=== PATIENT | male | born 1970 | race African-American/Black ===

== ENCOUNTER 2022-05-28 09:51 | Observation (INO) ==
[2022-05-28] MEDS ORDERED: ONDANSETRON 4 MG/2 ML VIAL IV STA (10:40)
[2022-05-28] MEDS ORDERED: LABETALOL 100 MG/20 ML VIAL IV STA (10:40)
[2022-05-28] MEDS ORDERED: SODIUM CHLORIDE 0.9% 500 ML IV STA (10:40)
[2022-05-28 10:50] LABS: Mucus,Urine Occasional /LPF (Occasional); RBC,Urine 5 /HPF (0-4); Squamous Epithelial Cell,Urine Occasional /HPF (0-10)
[2022-05-28 10:52] LABS: Bilirubin,Urine Negative (Negative); Blood, Urine Moderate mg/dL (Negative); Glucose,Urine (UA) 100 mg/dL (Negative); Ketones,Urine Trace mg/dL (Negative); Nitrite,Urine Negative (Negative); Protein,Urine 100 mg/dL (Negative); Urine Appearance Clear (Clear); Urine Color Yellow (Yellow); Urine Specific Gravity 1.025 (1.001-1.035); Urine Urobilinogen 0.2 eU/dL (<2.0)
[2022-05-28 10:57] LABS: Barbiturates Screen,Urine Negative (Negative); Benzodiazepines Screen,Urine Negative (Negative); Cannabinoid Screen,Urine Negative (Negative); Opiate Screen,Urine Negative (Negative); Phencyclidine Screen,Urine Negative (Negative)
[2022-05-28 10:59] LABS: Basophils % 0.5 % (0.0-0.8); Eosinophils % 0.2 % (0.00-10.9); Hematocrit 48.6 VOL% (42.0-52.0); Hemoglobin 15.8 GM/DL (14.0-18.0); Immature Granulocytes % 0.2 %; Immature Granulocytes Absolute 0.01 #; Lymphocytes # 1.1 10*3/uL (1.4-4.0); Lymphocytes % 24.1 % (21.2-54.2); Mean Corpuscular HGB Conc 32.5 GM/DL (32-36); Mean Corpuscular Volume 89.2 FL (87-102); Mean Platelet Volume 9.7 FL (9.6-12.0); Monocytes # 0.4 10*3/uL (0.11-0.8); Monocytes % 9.6 % (1.7-12.7); Neutrophils % 65.4 % (38.7-73.9); Platelet Count 247 T/CUMM (130-400); Red Blood Count 5.45 MC/CUMM (3.8-5.5); Red Cell Distribution Width 14.3 % (9.3-17.3); White Blood Count 4.4 T/CUMM (4-12)
[2022-05-28 11:09] LABS: Albumin 4.2 G/DL (3.4-5.0); Bilirubin,Total 0.8 MG/DL (0.20-1.00); Calcium 9.9 MG/DL (8.5-10.1); Osmolality,Calculated 274.7 MOS/KG (273-304); Total Protein 8.3 G/DL (6.4-8.2)
[2022-05-28] MEDS ORDERED: hydrALAZINE 20 MG/1 ML VIAL IV STA (12:51)
[2022-05-28] MEDS ORDERED: GLUCAGON 1 MG VIAL IM PRN (12:51)
[2022-05-28] MEDS ORDERED: DOCUSATE SODIUM 100 MG CAPSULE PO PRN (12:51)
[2022-05-28] MEDS ORDERED: LACTULOSE 20 GM/30 ML UDCUP PO PRN (12:51)
[2022-05-28] MEDS ORDERED: ALUMINUM/MAGNES/SIMETH MAX STR 30 ML UDCUP PO PRN (12:51)
[2022-05-28] MEDS ORDERED: ACETAMINOPHEN 325 MG TABLET PO PRN (12:51)
[2022-05-28] MEDS ORDERED: DEXTROSE 10% 250 ML BAG IV PRN (12:51)
[2022-05-28] MEDS ORDERED: hydrALAZINE 20 MG/1 ML VIAL IV PRN ×2 (12:51→20:59)
[2022-05-28] MEDS ORDERED: SIMETHICONE CHEW 125 MG TABLET PO PRN (12:51)
[2022-05-28] MEDS ORDERED: ONDANSETRON 4 MG/2 ML VIAL IV PRN (12:51)
[2022-05-28] MEDS ORDERED: cloNIDine 0.3 MG/24 HR PATCH TRANSDERM SCH (13:00)
[2022-05-28] MEDS ORDERED: MAGNESIUM SULF RIDER 4 GM/100 ML PREMIX IV PRN (13:21)
[2022-05-28] MEDS ORDERED: MAGNESIUM SULF RIDER 2 GM/50 ML PREMIX IV PRN (13:21)
[2022-05-28] MEDS ORDERED: chlordiazePOXIDE 10 MG CAPSULE PO PRN (15:21)
[2022-05-28] MEDS: hydroCHLOROthiazide 25 MG TABLET PO SCH (16:26)
[2022-05-28] MEDS: ENOXAPARIN 40 MG/0.4 ML SYRINGE SUBCUT SCH (16:26)
[2022-05-28] MEDS: VALSARTAN 160 MG TABLET PO SCH (16:26)
[2022-05-28] MEDS ORDERED: LABETALOL 20 MG/4 ML SYRINGE IV PRN (20:55)
[2022-05-28] MEDS ORDERED: DOXAZOSIN 1 MG TABLET PO SCH (21:30)
[2022-05-29 06:01] LABS: Basophils % 0.2 % (0.0-0.8); Hematocrit 49.6 VOL% (42.0-52.0); Hemoglobin 15.9 GM/DL (14.0-18.0); Immature Granulocytes % 0.2 %; Immature Granulocytes Absolute 0.01 #; Lymphocytes # 0.8 10*3/uL (1.4-4.0); Lymphocytes % 17.5 % (21.2-54.2); Mean Corpuscular HGB Conc 32.1 GM/DL (32-36); Mean Corpuscular Volume 89.9 FL (87-102); Mean Platelet Volume 10.1 FL (9.6-12.0); Monocytes # 0.4 10*3/uL (0.11-0.8); Monocytes % 9.4 % (1.7-12.7); Neutrophils % 72.7 % (38.7-73.9); Platelet Count 241 T/CUMM (130-400); Red Blood Count 5.52 MC/CUMM (3.8-5.5); Red Cell Distribution Width 14.2 % (9.3-17.3); White Blood Count 4.6 T/CUMM (4-12)
[2022-05-29] MEDS: DEXTROSE 5% NACL 0.45% 1,000 ML IV SCH ×2 (06:25→23:02)
[2022-05-29 06:39] LABS: Albumin 3.7 G/DL (3.4-5.0); Bilirubin,Total 1.5 MG/DL (0.20-1.00); Calcium 9.9 MG/DL (8.5-10.1); Osmolality,Calculated 269.2 MOS/KG (273-304); Potassium 3.7 MMOL/L (3.5-5.1); Risk Ratio 2.52; Thyroid Stimulating Hormone 2.23 uIU/ml (0.358-3.74); VLDL Cholesterol 50.6 MG/DL
[2022-05-29 08:55] LABS: Hepatitis B Core IgM Quant 0.14 Index; Hepatitis B Surface Ag Quant < 0.10 Index; Hepatitis B Surface Ag Result Non-Reactive (NonReactive); Hepatitis C Virus Ab Quant 0.18 Index; Hepatitis C Virus Ab Result Non-Reactive (NonReactive)
[2022-05-29] MEDS: PANTOPRAZOLE 40 MG TABLET PO SCH (09:08)
[2022-05-29] MEDS: VALSARTAN 160 MG TABLET PO SCH (09:09)
[2022-05-29] MEDS: hydroCHLOROthiazide 25 MG TABLET PO SCH (09:10)
[2022-05-29] MEDS ORDERED: MAGNESIUM HYDROXIDE SUSP 30 ML UDCUP PO ONE (13:00)
[2022-05-29] MEDS: POLYETHYLENE GLYCOL POWDER 17 GM PACK PO SCH (13:15)
[2022-05-29] MEDS: ENOXAPARIN 40 MG/0.4 ML SYRINGE SUBCUT SCH (15:04)
[2022-05-29] MEDS: DOCUSATE SODIUM 100 MG CAPSULE PO SCH (21:37)
[2022-05-30] MEDS: PANTOPRAZOLE 40 MG TABLET PO SCH (08:54)
[2022-05-30] MEDS: hydroCHLOROthiazide 25 MG TABLET PO SCH (08:54)
[2022-05-30] MEDS: DOCUSATE SODIUM 100 MG CAPSULE PO SCH (08:54)
[2022-05-30] MEDS ORDERED: VALSARTAN 160 MG TABLET PO SCH (09:00)
[2022-05-30] MEDS: POLYETHYLENE GLYCOL POWDER 17 GM PACK PO SCH (09:48)
[2022-05-30] MEDS ORDERED: LINACLOTIDE 145 MCG CAPSULE PO SCH (10:00)
[2022-05-30] MEDS: DEXTROSE 5% NACL 0.45% 1,000 ML IV SCH (11:58)
[2022-05-30 12:09] LABS: Basophils % 0.2 % (0.0-0.8); Hematocrit 46.7 VOL% (42.0-52.0); Hemoglobin 14.8 GM/DL (14.0-18.0); Immature Granulocytes % 0.2 %; Immature Granulocytes Absolute 0.01 #; Lymphocytes # 1.3 10*3/uL (1.4-4.0); Lymphocytes % 31.9 % (21.2-54.2); Mean Corpuscular HGB Conc 31.7 GM/DL (32-36); Mean Corpuscular Volume 91.2 FL (87-102); Mean Platelet Volume 10.1 FL (9.6-12.0); Monocytes # 0.5 10*3/uL (0.11-0.8); Monocytes % 12.6 % (1.7-12.7); Neutrophils % 54.1 % (38.7-73.9); Platelet Count 246 T/CUMM (130-400); Red Blood Count 5.12 MC/CUMM (3.8-5.5); Red Cell Distribution Width 14.2 % (9.3-17.3); White Blood Count 4.1 T/CUMM (4-12)
[2022-05-30 12:27] LABS: Calcium 9.3 MG/DL (8.5-10.1); Osmolality,Calculated 270.1 MOS/KG (273-304); Potassium 4.1 MMOL/L (3.5-5.1)
[2022-05-30 15:24] VITALS: BP 112/73
[2022-05-30] MEDS: ENOXAPARIN 40 MG/0.4 ML SYRINGE SUBCUT SCH (16:19)
== END 2022-05-30 16:20 | disposition home or self-care (01) ==
LOC: N.EDINP 09:51 → N.ED 09:51 → N.EDINP 13:42 → N.5E 15:53
PROVIDERS: ADMIT Hospitalist; ATTEND Hospitalist